=== PATIENT | female | born 1990 | race Two or more races ===

== ENCOUNTER 2018-11-08 14:05 | Emergency (ER) | payer BC ==
--- NOTE | 2018-11-08 14:30 | EDM.PDOC ---
ED HPI GENERAL MEDICAL PROBLEM - General Chief Complaint: Genitourinary Problem Stated Complaint: BLOOD IN URINE Time Seen by Provider: 11/08/18 14:10 - History of Present Illness INITIAL COMMENTS - FREE TEXT/NARRATIVE: HISTORY AND PHYSICAL: History of present illness: The patient is a 27-year-old female who presents with complaints of one week of burning with urination lower back pain and pressure with urination along with subjective fever and chills. She has no flank pain no upper abdominal pain but she has had some nausea without vomiting or diarrhea. She has not documented a fever but says that she has felt feverish. She denies but says that she has irregular periods. The patient has no vaginal complaints She is here with significant other. She is pushing hydration and eating normally. She has not taken anything specifically for the pain but has tried a probiotic. Patient did not state that she has had any hematuria on my evaluation Review of systems: As per history of present illness and below otherwise all systems reviewed and negative. Past medical history: As per history of present illness and as reviewed below otherwise noncontributory. Surgical history: As per history of present illness and as reviewed below otherwise noncontributory. Social history: No reported history of drug or alcohol abuse. Family history: As per history of present illness and as reviewed below otherwise noncontributory. Physical exam: General: Well-developed well-nourished mildly overweight female who is nontoxic and vital signs are noted by me HEENT: Atraumatic, normocephalic, negative for conjunctival pallor or scleral icterus, mucous membranes moist, throat clear, neck supple, nontender, trachea midline. Lungs: Clear to auscultation, breath sounds equal bilaterally, chest nontender. Heart: S1S2, regular rate and rhythm no overt murmurs Abdomen: Soft, nondistended, nontender. Negative for masses or hepatosplenomegaly. Negative for costovertebral tenderness. Pelvis: Stable nontender. Genitourinary: Deferred. Rectal: Deferred. Extremities: Atraumatic, negative for cords or calf pain. Neurovascular unremarkable. Neuro: Awake, alert, oriented. Cranial nerves II through XII unremarkable. Cerebellum unremarkable. Motor and sensory unremarkable throughout. Exam nonfocal. Please note that I did see the patient's urine sample after it was given and prior to going to the laboratory. There is no hematuria grossly seen Diagnostics: UA urine culture UCG Therapeutics: [] Impression: UTI Definitive disposition and diagnosis as appropriate pending reevaluation and review of above. 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 ED EXAM, GENERAL - Physical Exam Exam: See Below (See dictation) Course - Vital Signs Last Recorded V/S: Last Vital Signs Temp 36.6 C 11/08/18 14:13 Pulse 103 H 11/08/18 14:13 Resp 20 11/08/18 14:13 BP 136/79 11/08/18 14:13 Pulse Ox 100 11/08/18 14:13 - Orders/Labs/Meds Orders: Active Orders 24 hr Category Date Time Status CULTURE URINE [RM] Stat Lab 11/08/18 14:12 Received Labs: Laboratory Tests 11/08/18 11/08/18 Range/Units 14:12 14:12 Urine Color YELLOW Urine Appearance SLT CLOUDY Urine pH 6.0 (5.0-8.0) Ur Specific [place] 1.020 (1.001-1.035) Urine Protein TRACE H (NEGATIVE) mg/dL Urine Glucose (UA) NEGATIVE (NEGATIVE) mg/dL Urine Ketones NEGATIVE (NEGATIVE) mg/dL Urine Occult Blood LARGE H (NEGATIVE) Urine Nitrite NEGATIVE (NEGATIVE) Urine Bilirubin NEGATIVE (NEGATIVE) Urine Urobilinogen 0.2 (<2.0) EU/dL Ur Leukocyte Esterase MODERATE H (NEGATIVE) Urine RBC 20-30 (0-2/HPF) Urine WBC 30-40 (0-5/HPF) Ur Epithelial Cells FEW (NONE-FEW) Urine Bacteria FEW (NEGATIVE) Urine HCG, Qual NEGATIVE (NEGATIVE) Departure - Departure Time of Disposition: 14:50 Disposition: Home, Self-Care 01 Condition: Good Clinical Impression: UTI, Urinary tract infectious disease - Discharge Information Referrals: PCP,None [Primary Care Provider] - Forms: ED Department Discharge Additional Instructions: The following information is given to patients seen in the emergency department who are being discharged to home. This information is to outline your options for follow-up care. We provide all patients seen in our emergency department with a follow-up referral. The need for follow-up, as well as the timing and circumstances, are variable depending upon the specifics of your emergency department visit. If you don't have a primary care physician on staff, we will provide you with a referral. We always advise you to contact your personal physician following an emergency department visit to inform them of the circumstance of the visit and for follow-up with them and/or the need for any referrals to a consulting specialist. The emergency department will also refer you to a specialist when appropriate. This referral assures that you have the opportunity for followup care with a specialist. All of these measure are taken in an effort to provide you with optimal care, which includes your followup. Under all circumstances we always encourage you to contact your private physician who remains a resource for coordinating your care. When calling for followup care, please make the office aware that this follow-up is from your recent emergency room visit. If for any reason you are refused follow-up, please contact the [facility] emergency department at and ask to speak to the emergency department charge nurse. [facility]- [facility] Family [address] [address] Push hydration and take all medications as prescribed. Please call and schedule a follow-up appointment in the clinic with one of our providers or with your provider for reevaluation and further care and return to ER as needed and as discussed. Use any [id number] medications you choose for discomfort and pain. - My Orders Last 24 Hours: My Active Orders 11/08/18 14:12 CULTURE URINE [RM] Stat - Assessment/Plan Last 24 Hours: My Active Orders 11/08/18 14:12 CULTURE URINE [RM] Stat
[2018-11-08 15:02] VITALS: BP 105/63; PULSE 95
== END 2018-11-08 14:59 | disposition home or self-care (01) ==
LOC: MW.ED 14:05
DX: N39.0 Urinary tract infection, site not specified (principal)
CPT/HCPCS: 81001; 81025; 87086; 87088; 87186; 99283

== ENCOUNTER 2020-07-06 13:59 | Observation (INO) | payer BC | END 2020-07-06 14:06 | disposition home or self-care (01) | LOC: MW.OB 13:59 | PROVIDERS: ADMIT Obstetrics & Gynecology; ATTEND Obstetrics & Gynecology | DX: Z20.822 Contact with and (suspected) exposure to COVID-19 (principal) | CPT/HCPCS: U0002 ==

== ENCOUNTER 2020-07-07 21:51 | Inpatient (IN) | payer BC ==
[2020-07-07] MEDS ORDERED: Oxytocin/0.9 % Sodium Chloride 30 UNIT/500 ML BAG IV SCH ×2 (22:45→23:00)
[2020-07-07] MEDS ORDERED: Sodium Chloride 0.9% 10 ML Syringe FLUSH PRN (22:45)
[2020-07-07] MEDS ORDERED: Sodium Chloride 0.9% 10 ML SDV IV PRN (22:45)
[2020-07-07] MEDS ORDERED: Sodium Chloride 0.9% 2.5 ML Syringe FLUSH PRN (22:45)
[2020-07-07] MEDS ORDERED: Water For Irrigation,Sterile 1,000 ML Container IRR PRN (22:45)
[2020-07-07] MEDS ORDERED: Tranexamic Acid 1,000 MG in Sodium Chloride 0.9% 100 ML IV PRN (22:45)
[2020-07-07] MEDS ORDERED: Misoprostol 200 MCG Tab PO PRN (22:45)
[2020-07-07] MEDS ORDERED: Carboprost Tromethamine 250 MCG/1 ML Amp IM PRN (22:45)
[2020-07-07] MEDS ORDERED: Methylergonovine 0.2 MG/1 ML Amp IM PRN (22:45)
[2020-07-07] MEDS ORDERED: Lidocaine 1% 50 ML MDV INJECT PRN (22:45)
[2020-07-07] MEDS ORDERED: Misoprostol 25 MCG (1/4 of 100 MCG) Tab PO PRN (22:48)
[2020-07-07] MEDS ORDERED: Terbutaline 1 MG/ML SDV SUBCUT PRN (22:48)
[2020-07-08] MEDS: Butorphanol 1 MG/ML SDV IVPUSH PRN ×2 (02:18→05:17)
[2020-07-08] MEDS: Lactated Ringers 1,000 ML IV SCH ×2 (05:11→08:25)
[2020-07-08] MEDS ORDERED: fentaNYL 100 MCG/2 ML SDV ONE (07:00)
[2020-07-08] MEDS ORDERED: Ropivacaine HCl/PF 0 ML ONE (07:00)
[2020-07-08] MEDS ORDERED: Bisacodyl 10 MG Supp RECTAL PRN (07:43)
[2020-07-08] MEDS ORDERED: oxyCODONE 5 MG Tab PO PRN (07:43)
[2020-07-08] MEDS ORDERED: Ibuprofen 400 MG Tab PO PRN (07:43)
[2020-07-08] MEDS ORDERED: Acetaminophen 500 MG Tab PO PRN ×2 (07:43)
[2020-07-08] MEDS ORDERED: Lanolin 100% Cream 7 GM Tube TOP PRN (07:43)
[2020-07-08] MEDS ORDERED: Witch Hazel Medicated Pads 40/Jar TOP PRN (07:43)
[2020-07-08] MEDS ORDERED: Benzocaine/Menthol 20%-0.5% Spray 78 GM Cannister TOP PRN (07:43)
--- NOTE | 2020-07-08 07:52 | PCM.OPNOTE ---
- General Post-Op/Procedure Note Date of Surgery/Procedure: 07/08/20 Operative Procedure(s): /2nd MLL repaired Findings: Viable male APGARs 8, 9 weight 3960 gm. Spontaneous delivery intact placenta with 3V cord Pre Op Diagnosis: 39/4 week IUP. Elective IOL Post-Op Diagnosis: Same. 3) meconium stained amniotic fluid Anesthesia Technique: Local Primary Surgeon: Ronda Francisco EBL in mLs: 300 Complications: none known Condition: Good Free Text/Narrative:: Dictation [id number]
[2020-07-08] MEDS: Ibuprofen 800 MG Tab PO PRN ×3 (08:27→22:53)
--- NOTE | 2020-07-08 13:58 | OR ---
SURGEON: Ronda Francisco M.D. DATE OF PROCEDURE: 07/08/2020 PREOPERATIVE DIAGNOSES: 1. A 39 and 4 week intrauterine . 2. Elective induction of labor. POSTOPERATIVE DIAGNOSES: 1. A 39 and 4 week intrauterine . 2. Elective induction of labor. 3. Meconium-stained amniotic fluid. PROCEDURE: Spontaneous vaginal delivery, second-degree midline laceration. ANESTHESIA: Local. ESTIMATED BLOOD LOSS: 300 mL. COMPLICATIONS: None known. FINDINGS: Viable male, score 8 at 1 minute, 9 at 5 minutes, weight of 3960 g. Spontaneous delivery, intact placenta, 3-vessel cord. Meconium-stained amniotic fluid noted. Nuchal cord x2 loose, reduced manually. DISPOSITION: The patient to remain in [facility] infant nursery, stable. PROCEDURE DETAILS: Yolanda is a 29-year-old G2, P1 at 39 and 3 weeks gestational age, presented on the evening of 07/07/2020 for scheduled induction of labor. She was admitted. Routine labs were drawn. IV hydration was initiated. She underwent Cytotec dosing as she was 2, 60, -3. She responded nicely to this. By the following morning, approximately 5 a.m., she was approximately 3 cm, 60% effaced, -2 station. At this point, she had regular contractions every 2 minutes, was becoming increasingly uncomfortable, and by approximately 6 a.m., she was found to be 5 to 6 cm. The patient was seen and evaluated. She did initially request an epidural; however, within the next 30 to 45 minutes, she progressed to 9 to 10 cm, feeling the urge to push and opted not to undergo the epidural. She had spontaneous rupture of membranes shortly before 7 a.m. The patient quickly progressed to complete, feeling the urge to push. She was placed in modified dorsal lithotomy position. Was prepped and draped in the usual aseptic manner. With the next 2 contractions, was able to push, delivered the infant's head atraumatically spontaneously, followed by anterior shoulder, posterior shoulder, and remainder of the body without difficulty. There was a loose nuchal cord x2 noted. This was reduced manually. The infant's oropharynx and nares were bulb suctioned. Infant was handed off to his mother, attending nursery staff at her side. Infant had good tone, was crying. After delay, cord was clamped x2 and cut. Cord arterial, cord venous, cord blood sampling was obtained. Light pressure was applied while the placenta was delivered spontaneously intact. Vigorous fundal uterine massage was then applied. Pitocin was delivered in 500 mL of IV fluid. There is a second-degree midline laceration noted. This was repaired using 3-0 Vicryl after prepping the region with approximately 15 mL 1% local lidocaine. Had placed some lidocaine along the perineum prior to delivery. The patient tolerated the repair well. Sponge, instrument, and needle count was correct. Uterus remained firm. Hemostasis evident. The patient remained in [facility] to nursery. KJ / GONZALES /[id number] MTDArgelia
[2020-07-08] MEDS: Docusate Sodium 100 MG Cap PO PRN (20:57)
--- NOTE | 2020-07-09 05:32 | PCM.PNPP ---
- General Info Date of Service: 07/09/20 Functional Status: Reports: Pain Controlled - Review of Systems General: Reports: No Symptoms HEENT: Reports: No Symptoms Pulmonary: Reports: No Symptoms Cardiovascular: Reports: No Symptoms Gastrointestinal: Reports: No Symptoms Genitourinary: Reports: No Symptoms Musculoskeletal: Reports: No Symptoms Skin: Reports: No Symptoms Neurological: Reports: No Symptoms Psychiatric: Reports: No Symptoms - General Info Date of Service: 07/09/20 - Patient Data Vital Signs - Most Recent: Last Vital Signs Temp 36.6 C 07/08/20 20:00 Pulse 73 07/08/20 20:00 Resp 16 07/08/20 20:00 BP 127/77 07/08/20 20:00 Pulse Ox 98 07/08/20 20:00 Weight - Most Recent: 107.955 kg Lab Results - Last 24 Hours: Laboratory Results - last 24 hr 07/08/20 Range/Units 07:14 Cord ABG pH 7.210 (7.18-7.38) Cord ABG Base Excess -9 (-10--2) Cord VBG pH 7.340 (7.25-7.45) Cord VBG Base Excess -4 (-10--2) Med Orders - Current: Current Medications Acetaminophen (Acetaminophen 500 Mg Tab) 500 mg PO Q4H PRN PRN Reason: Pain Acetaminophen (Acetaminophen 500 Mg Tab) 1,000 mg PO Q4H PRN PRN Reason: Pain Last Admin: 07/09/20 05:17 Dose: 1,000 mg Documented by: Benzocaine/Menthol (Benzocaine/Menthol 20%-0.5% [place] 78 Gm Cannister) 78 gm TOP ASDIRECTED PRN PRN Reason: Perineal Comfort Measure Last Admin: 07/08/20 08:26 Dose: 78 gm Documented by: Bisacodyl (Bisacodyl 10 Mg Supp) 10 mg RECTAL ONETIME PRN PRN Reason: Constipation Carboprost Tromethamine (Carboprost Tromethamine 250 Mcg/1 Ml Amp) 250 mcg IM ASDIRECTED PRN PRN Reason: Post Hemorrhage Docusate Sodium (Docusate Sodium 100 Mg Cap) 100 mg PO BID PRN PRN Reason: Constipation Last Admin: 07/08/20 20:57 Dose: 100 mg Documented by: Emollient Ointment (Lanolin 100% Cream 7 Gm Tube) 0 gm TOP ASDIRECTED PRN PRN Reason: Sore Nipples Last Admin: 07/08/20 08:27 Dose: 7 gm Documented by: Oxytocin/Sodium Chloride (Oxytocin 30 Unit/500 Ml-Ns) 30 unit in 500 mls @ 999 mls/hr IV TITRATE [facility] Last Admin: 07/08/20 07:16 Dose: 999 mls/hr Documented by: Tranexamic Acid 1,000 mg/ (Sodium Chloride) 110 mls @ 660 mls/hr IV ONETIME PRN PRN Reason: Bleeding Lactated Ringer's (Ringers, Lactated) 1,000 mls @ 150 mls/hr IV ASDIRECTED [facility] Last Admin: 07/08/20 08:25 Dose: 150 mls/hr Documented by: Ibuprofen (Ibuprofen 400 Mg Tab) 400 mg PO Q4H PRN PRN Reason: Pain Ibuprofen (Ibuprofen 800 Mg Tab) 800 mg PO Q6H PRN PRN Reason: Pain Last Admin: 07/08/20 22:53 Dose: 800 mg Documented by: Lidocaine HCl (Lidocaine 1% 50 Ml Mdv) 50 ml INJECT ONETIME PRN PRN Reason: Laceration repair Last Admin: 07/08/20 08:26 Dose: 50 ml Documented by: Methylergonovine Maleate (Methylergonovine 0.2 Mg/1 Ml Amp) 0.2 mg IM ASDIRECTED PRN PRN Reason: Post Hemorrhage Oxycodone HCl (Oxycodone 5 Mg Tab) 5 mg PO Q2H PRN PRN Reason: Pain Sodium Chloride (Sodium Chloride 0.9% 10 Ml Syringe) 10 ml FLUSH ASDIRECTED PRN PRN Reason: Keep Vein Open Sodium Chloride (Sodium Chloride 0.9% 2.5 Ml Syringe) 2.5 ml FLUSH ASDIRECTED PRN PRN Reason: Keep Vein Open Sterile Water (Water For Irrigation,Sterile 1,000 Ml Container) 1,000 ml IRR ASDIRECTED PRN PRN Reason: delivery Witch Aysha (Witch Aysha Medicated Pads 40/Jar) 1 pad TOP ASDIRECTED PRN PRN Reason: comfort care Last Admin: 07/08/20 08:26 Dose: 1 pad Documented by: Discontinued Medications Butorphanol Tartrate (Butorphanol 1 Mg/Ml Sdv) 1 mg IVPUSH Q1H PRN PRN Reason: Pain Last Admin: 07/08/20 05:17 Dose: 1 mg Documented by: Fentanyl (Fentanyl 100 Mcg/2 Ml Sdv) Confirm Administered Dose 100 mcg .ROUTE .STK-MED ONE Stop: 07/08/20 07:01 Last Admin: 07/09/20 02:55 Dose: Not Given Documented by: Oxytocin/Sodium Chloride (Oxytocin 30 Unit/500 Ml-Ns) 30 unit in 500 mls @ 2 mls/hr IV TITRATE DONNY; Protocol Ropivacaine (Naropin 0.2%) Confirm Administered Dose 100 mls @ as directed .ROUTE .STK-MED ONE Stop: 07/08/20 07:01 Last Admin: 07/09/20 02:55 Dose: Not Given Documented by: Misoprostol (Misoprostol 200 Mcg Tab) 200 mcg PO ONETIME PRN PRN Reason: Post Hemorrhage Misoprostol (Misoprostol 25 Mcg (1/4 Of 100 Mcg) Tab) 25 mcg PO ONETIME PRN PRN Reason: Cervical Ripening Last Admin: 07/07/20 23:08 Dose: 25 mcg Documented by: Sodium Chloride (Sodium Chloride 0.9% 10 Ml Sdv) 10 ml IV ASDIRECTED PRN PRN Reason: IV Use Terbutaline Sulfate (Terbutaline 1 Mg/Ml Sdv) 0.25 mg SUBCUT ASDIRECTED PRN PRN Reason: Tacysystole - Infant Interaction Support Person: - Recovery Exam Fundal Tone: Firm Fundal Level: 1 Fingerbreadths Below Umbilicus Fundal Placement: Midline Lochia Amount: Scant, Small Lochia Color: Rubra/Red Perineum Description: Other (see below) Other Perinuem Description: 2nd degree laceration Episiotomy/Laceration: Approximated Bladder Status: Voiding Urinary Elimination: Voided - Exam General: Alert, Oriented Cardiovascular: Regular Rate, Regular Rhythm GI/Abdominal Exam: Normal Bowel Sounds, Soft Extremities: Pedal Edema (trace). No: Pietro's Sign Skin: Warm, Dry, Intact Neurological: No New Focal Deficit Psy/Mental Status: Alert, Normal Affect, Normal Mood - Problem List & Annotations (1) Vaginal delivery SNOMED Code(s): 901488215 Code(s): O80 - ENCOUNTER FOR FULL-TERM UNCOMPLICATED DELIVERY Status: Acute Current Visit: No - Problem List Review Problem List Initiated/Reviewed/Updated: Yes - My Orders Last 24 Hours: My Active Orders 07/08/20 Breakfast Regular Diet [DIET] 07/08/20 07:43 Notify Provider Vital Signs [RC] ASDIRECTED Acetaminophen [Tylenol Extra Strength] 1,000 mg PO Q4H PRN Acetaminophen [Tylenol Extra Strength] 500 mg PO Q4H PRN Benzocaine/Menthol [Dermoplast Pain Relief 20%-0.5% [place]] 78 gm TOP ASDIRECTED PRN Docusate Sodium [Colace] 100 mg PO BID PRN Ibuprofen [Motrin] 400 mg PO Q4H PRN Ibuprofen [Motrin] 800 mg PO Q6H PRN Lanolin [Lansinoh HPA] See Dose Instructions TOP ASDIRECTED PRN bisacodyL [Dulcolax] 10 mg RECTAL ONETIME PRN oxyCODONE 5 mg PO Q2H PRN witch Aysha [Tucks] 1 pad TOP ASDIRECTED PRN 07/08/20 07:44 Patient Status [ADT] Routine May Shower [RC] ASDIRECTED Up ad Meme [RC] ASDIRECTED Vital Signs [RC] PER UNIT ROUTINE Assess Lochia [WOMSER] Per Unit Routine Assess Uterine Involution [WOMSER] Per Unit Routine Ice Therapy [OM.PC] Per Unit Routine Perineal Care [OM.PC] Per Unit Routine Peripheral IV Discontinue [OM.PC] Routine 07/09/20 05:11 HEMOGLOBIN/HEMATOCRIT,HH [HEME] Routine 07/09/20 05:30 Ready for Discharge [RC] PER UNIT ROUTINE - Assessment Assessment:: PPD 1 status post - Plan Plan:: Doing well overall-- going well. Would like to go home today. Discharge instructions reviewed. Follow up at [facility] 4 weeks. Discharge to home today.
[2020-07-09] MEDS: Docusate Sodium 100 MG Cap PO PRN (07:11)
[2020-07-09] MEDS: Ibuprofen 800 MG Tab PO PRN (07:11)
[2020-07-09 09:18] VITALS: BP 123/70; PULSE 77
== END 2020-07-09 15:40 | disposition home or self-care (01) | DRG 560 ==
LOC: MW.OB 21:51 → OBSVTOIN 07-08 07:16 → MW.OB 07-08 11:37
PROVIDERS: ADMIT Obstetrics & Gynecology; ATTEND Obstetrics & Gynecology
PROC: 10E0XZZ Delivery of Products of Conception, External Approach (ICD-10-PCS; principal; 2020-07-08)
PROC: 3E0P7VZ Introduction of Hormone into Female Reproductive, Via Natural or Artificial Opening (ICD-10-PCS; 2020-07-08)
PROC: 0KQM0ZZ Repair Perineum Muscle, Open Approach (ICD-10-PCS; 2020-07-08)
DX: O77.0 Labor and delivery complicated by meconium in amniotic fluid (principal); Z3A.39 39 weeks gestation of pregnancy; Z37.0 Single live birth; O69.81X0 Labor and delivery complicated by cord around neck, without compression, not applicable or unspecified; O70.1 Second degree perineal laceration during delivery
CPT/HCPCS: 36415; 59025; 59409; 82803; 85014; 85018; 85027; 86592; 86850; 86900; 86901; A9270-GY; J0595; J2001; J2590; J7120

== ENCOUNTER 2021-02-24 08:05 | Emergency (ER) | payer BC ==
[2021-02-24] MEDS ORDERED: Ketorolac 15 MG/ML SDV IM ONE (08:44)
[2021-02-24 09:08] LABS: CORONAVIRUS COVID-19 NAA POSITIVE (NEGATIVE); INFLUENZA A NAA NEGATIVE (NEGATIVE); INFLUENZA B NAA NEGATIVE (NEGATIVE)
[2021-02-24 09:42] VITALS: BP 102/58; PULSE 98
--- NOTE | 2021-02-24 09:44 | EDM.PDOC ---
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 The patient states that she is experiencing a bifrontal headache which she describes as mild and throbbing rated 4-5 out of 10 not associated with any blurry vision, double vision or loss of vision. She denies any trouble walking speaking or swallowing. She states that in addition to this she is experiencing body aches, runny nose and a nonproductive cough. She denies any chest pain or shortness of breath. She states that she has not yet tried any pain medication other than Tylenol and flu pills which has not helped her body aches or her headache. There are no exacerbating factors. She states that she is not vaccinated and her just tested positive for Covid. She states that her symptoms have been going on for approximately 2 days now. She denies any other symptoms such as recent travel, recent surgery or prior history of DVT or PE. REVIEW OF SYSTEMS: Constitutional: Denies fever, chills. Eyes: Denies eye pain Ears, Nose, Mouth, & Throat: Positive for runny nose denies earache Cardiovascular: Denies chest pain Respiratory: Denies shortness of breath Gastrointestinal: Denies Nausea, vomiting, diarrhea, hematochezia. Genitourinary: Denies hematuria Skin:Denies a rash MSK: Positive for body aches Neurological: Positive for headache. Denies blurred vision, double vision, loss of vision, numbness, tingling, weakness psychiatric: Denies depression PAST MEDICAL HISTORY: As per history of present illness and as reviewed below otherwise noncontributory. SURGICAL HISTORY: As per history of present illness and as reviewed below otherwise noncontributory. SOCIAL HISTORY: As per history of present illness and as reviewed below otherwise noncontributory. FAMILY HISTORY: As per history of present illness and as reviewed below otherwise noncontributory. EXAMINATION OF ORGAN SYSTEMS/BODY AREAS: Constitutional: Blood pressure is 124/54, heart rate 109, respiratory rate 16 with an oxygen saturation 95% on room air. Temperature 36.0 General: Well-appearing woman who is in no acute distress Psychiatric: Appropriate mood and affect. Eyes: No scleral icterus or conjunctival erythema ENMT: Moist mucous membranes. No pharyngeal erythema Cardiovascular: Regular, rate, and rhythm. No gallops, murmurs, or rubs. Bilateral upper extremity pulses symmetric and intact. No peripheral edema. No JVD. Respiratory: Lungs clear to auscultation bilaterally. No wheezes, rales, or rhonchi. Gastrointestinal: Soft, non-tender, non-distended. Normoactive bowel sounds Genitourinary: No suprapubic tenderness Musculoskeletal: Normal range of motion. Skin: No lesions or abrasions. Neurological: Alert, GCS 15 MEDICAL DECISION MAKING AND COURSE IN THE ED WITH INTERPRETATION/REVIEW OF DIAGNOSTIC STUDIES: This is a 30-year-old woman without any significant past medical history who comes to the emergency department with Covid-like symptoms with a known exposure and her . At this time the patient's oxygenation is appropriate. Will obtain a Covid, influenza and RSV swab. I do not believe any further work-up is indicated. DDx: Covid, viral URI Laboratory: Covid is positive. Influenza is negative. After labs and imaging I did discuss Covid precautions. I discussed supportive treatment at treatment at home. I discussed return precautions. She does need Regeneron infusion criteria. Therefore I did fax the patient's information over as the patient was interested. She was amenable to discharge and had no further questions DISPOSITION: The patient was discharged home in stable condition. The patient will follow up with PCP after isolation. CONDITION: Fair PROCEDURES: None FINAL IMPRESSION(S)/DIAGNOSES: 1. Acute COVID-19 Vineet Arreguin M.D. Generalized Pain Score (Numeric/FACES): 8 - Related Data Allergies Allergy/AdvReac Type Severity Reaction Status Date / Time No Known Allergies Allergy Verified 02/24/21 08:30 Home Meds: Home Meds . [No Known Home Meds] 02/24/21 [History] Past Medical History - Past Health History Medical/Surgical History: Denies Medical/Surgical History HEENT History: Reports: None Cardiovascular History: Reports: None Respiratory History: Reports: None Gastrointestinal History: Reports: None Genitourinary History: Reports: None CLERICAL GRADER History: Reports: Musculoskeletal History: Reports: None Neurological History: Reports: None Psychiatric History: Reports: None Endocrine/Metabolic History: Reports: None Hematologic History: Reports: None Immunologic History: Reports: None Oncologic (Cancer) History: Reports: None Dermatologic History: Reports: None - Infectious Disease History Infectious Disease History: Reports: Chicken Pox - Past Surgical History Head Surgeries/Procedures: Reports: None HEENT Surgical History: Reports: None Cardiovascular Surgical History: Reports: None Respiratory Surgical History: Reports: None GI Surgical History: Reports: None Female Surgical History: Reports: None Endocrine Surgical History: Reports: None Neurological Surgical History: Reports: None Musculoskeletal Surgical History: Reports: None Oncologic Surgical History: Reports: None Dermatological Surgical History: Reports: Other (See Below) Social & Family History - Family History Family Medical History: No Pertinent Family History HEENT: Reports: None Cardiac: Reports: Hypertension Respiratory: Reports: Asthma GI: Reports: None : Reports: Other (See Below) Other Family History: Kidney disease Musculoskeletal: Reports: None Neurological: Reports: None Psychiatric: Reports: None Endocrine/Metabolic: Reports: Diabetes, Type I Hematologic: Reports: None Immunologic: Reports: None Dermatologic: Reports: None Oncologic: Reports: Breast - Tobacco Use Tobacco Use Status *Q: Never Tobacco User - Caffeine Use Caffeine Use: Reports: None - Recreational Drug Use Recreational Drug Use: No ED ROS GENERAL - Review of Systems Review Of Systems: See Below ED EXAM, GENERAL - Physical Exam Exam: See Below Course - Vital Signs Last Recorded V/S: Last Vital Signs Temp 37.9 C 02/24/21 08:38 Pulse 98 02/24/21 09:42 Resp 16 02/24/21 09:42 BP 102/58 L 02/24/21 09:42 Pulse Ox 98 02/24/21 09:42 - Orders/Labs/Meds Labs: Laboratory Tests 02/24/21 Range/Units 08:27 Influenza Type A RNA NEGATIVE (NEGATIVE) Influenza Type B RNA NEGATIVE (NEGATIVE) SARS-CoV-2 RNA (ANABELLA) POSITIVE H (NEGATIVE) Meds: Medications Discontinued Medications Generic Name Dose Route Start Last Admin Trade Name Freq PRN Reason Stop Dose Admin Ketorolac Tromethamine 15 mg 02/24/21 08:44 02/24/21 08:48 Ketorolac 15 Mg/Ml Sdv IM 02/24/21 08:45 15 mg ONETIME ONE Administration Departure - Departure Time of Disposition: 09:43 Disposition: Home, Self-Care 01 Condition: Fair Clinical Impression: COVID-19 - Discharge Information *PRESCRIPTION DRUG MONITORING PROGRAM REVIEWED*: No *COPY OF PRESCRIPTION DRUG MONITORING REPORT IN PATIENT MICKY: No Instructions: 10 Things You Can Do to Manage Your COVID-19 Symptoms at Home - [facility] (10/20/2020) Referrals: PCP,None [Primary Care Provider] - Forms: ED Department Discharge Additional Instructions: Debe rosi acetaminofn 500-1000 mg cada 6 horas segn sea necesario para la fiebre y los yue musculares. Rula muchos lquidos y descanse lo suficiente domonique los prximos gee. Le recomendamos que obtenga un oxmetro de pulso en la farmacia para controlar molina nivel de oxgeno. Si molina nivel de oxgeno por debajo del 91%, debe regresar al servicio de urgencias para molina evaluacin. Debe regresar a la tj de emergencias antes si comienza a tener sntomas de dificultad para respirar o cualquier otro sntoma nuevo o preocupante. 1. Molina prueba de COVID-19 es positiva. Eso significa que tiene el coronavirus y se le considera contagioso. Clraa signos vitales y la saturacin de oxgeno estn lo suficientemente felicia ariel para poder controlar clara sntomas en casa. Contine monitoreando si tiene problemas para respirar, nueva confusin o incapacidad para despertarse, labios o randell azulados o cualquiera de los otros sntomas que discutimos; si esto ocurre, regrese a la tj de emergencias. 2. Pngase en cuarentena domonique los prximos 10 gee. Informe a todas las personas con las que rodríguez estado en contacto desde que comenz a tener sntomas de que rodríguez dado positivo en la prueba; deben ser informados y rosi las medidas adecuadas segn sea necesario. 3. Puede alternar Tylenol e ibuprofeno segn sea necesario para controlar el dolor y la fiebre. 4. El departamento de satinder del estado lo llamar y se pondr en contacto con usted. La lnea directa de [place] COVID 19, nmero de telfono , est abierta de lunes a viernes de 7 a. M. A 7 p. M. Polly un seguimiento con molina proveedor de atencin primaria para junaid reevaluacin y junaid nueva prueba despus de la cuarentena de 10 gee y discuta cundo debe ser atendido. [facility] [address] [place] [id number] [facility] [address] [place] [id number] Se informa al paciente de los resultados de molina evaluacin y diagnstico y se responden todas las preguntas. Se les chacha instrucciones de nay y precauciones de devolucin. El paciente est estable para el nay. El paciente afirma que e ntiende y est de acuerdo con el plan y que volver si clara sntomas empeoran o si tiene alguna inquietud nueva. La siguiente informacin se brock a los pacientes atendidos en el departamento de emergencias que estn siendo dados de nay a molina hogar. Esta informacin es para describir clara opciones para la atencin de seguimiento. Proporcionamos a todos los pacientes atendidos en nuestro departamento de emergencias junaid derivacin de seguimiento. La necesidad de seguimiento, as ariel el momento y las circunstancias, varan segn los detalles de molina visita al departamento de emergencias. Si no tiene un mdico de atencin primaria en el personal, le proporcionaremos junaid referencia. Siempre le recomendamos que se ponga en contacto con molina mdico personal despus de junaid visita al servicio de urgencias para informarle de las circunstancias de la visita y para realizar un seguimiento con l y / o la necesidad de cualquier derivacin a un especialista consultor. El departamento de emergencias tambin lo derivar a un especialista cuando sea apropiado. Esta remisin le asegura que tiene la oportunidad de recibir atencin de seguimiento con un especialista. Todas estas medidas se roz en un esfuerzo por brindarle junaid atencin ptima, que incluye molina seguimiento. En todas las circunstancias, siempre lo alentamos a que se comunique con molina mdico privado, quien sigue siendo un recurso para coordinar molina atencin. Cuando llame para recibir atencin de seguimiento, informe al consultorio que keily seguimiento es de molina visita reciente a la tj de emergencias. Si por alguna razn se le niega el seguimiento, comunquese con el Departamento de Emergencias del [facility] al y solicite hablar con la enfermera a cargo del departamento de emergencias. Sepsis Event Note (ED) - Evaluation Sepsis Screening Result: No Definite Risk
== END 2021-02-24 10:10 | disposition home or self-care (01) ==
LOC: MW.ED 08:05
DX: U07.1 COVID-19 (principal)
CPT/HCPCS: 0240U; 96372; 99284; J1885

== ENCOUNTER 2021-10-03 21:13 | Emergency (ER) | payer BC ==
[2021-10-03 22:38] VITALS: BP 101/69; PULSE 74
== END 2021-10-03 22:38 | disposition home or self-care (01) ==
LOC: MW.ED 21:13
DX: U07.1 COVID-19 (principal)
CPT/HCPCS: 81025; 99282; 99284; U0002

== ENCOUNTER 2022-09-27 00:27 | Inpatient (IN) | payer BC ==
[2022-09-27] MEDS ORDERED: Sodium Chloride 0.9% 10 ML Syringe FLUSH PRN (00:43)
[2022-09-27] MEDS ORDERED: Carboprost Tromethamine 250 MCG/1 mL Vial IM PRN (00:43)
[2022-09-27] MEDS ORDERED: Misoprostol 25 MCG (1/4 of 100 MCG) Tab VAG PRN ×2 (00:43)
[2022-09-27] MEDS ORDERED: Lidocaine 1% 50 ML MDV INJECT PRN (00:43)
[2022-09-27] MEDS ORDERED: Terbutaline 1 MG/ML SDV SUBCUT PRN (00:43)
[2022-09-27] MEDS ORDERED: Butorphanol 1 MG/ML SDV IVPUSH PRN (00:43)
[2022-09-27] MEDS ORDERED: Methylergonovine 0.2 MG/1 ML Amp IM PRN (00:43)
[2022-09-27] MEDS ORDERED: Misoprostol 200 MCG Tab PO PRN (00:43)
[2022-09-27] MEDS ORDERED: Sodium Chloride 0.9% 2.5 ML Syringe FLUSH PRN (00:43)
[2022-09-27] MEDS ORDERED: Sodium Chloride 0.9% 20 ML SDV IV PRN (00:43)
[2022-09-27] MEDS ORDERED: Water For Irrigation,Sterile 1,000 ML Container IRR PRN (00:43)
[2022-09-27] MEDS ORDERED: Tranexamic Acid 1,000 MG in Sodium Chloride 0.9% 100 ML IV PRN (00:43)
[2022-09-27] MEDS ORDERED: Oxytocin/0.9 % Sodium Chloride 30 UNIT/500 ML BAG IV SCH ×2 (00:45)
[2022-09-27] MEDS: Lactated Ringers 1,000 ML IV SCH ×3 (01:21→13:34)
[2022-09-27 01:30] LABS: HEMATOCRIT 38.4 % (36.0-46.0); HEMOGLOBIN 13.1 g/dL (12.0-16.0); MEAN CORPUSCULAR HEMOGLOBIN 29.8 pg (27.0-32.0); MEAN CORPUSCULAR HGB CONC 34.1 g/dL (31.0-37.0); MEAN CORPUSCULAR VOLUME 87.5 fL (80.0-98.0); MEAN PLATELET VOLUME 11.3 fL (7.40-12.00); RED BLOOD CELL COUNT 4.39 M/uL (4.30-5.90); WHITE BLOOD CELL COUNT,WBC 11.04 K/uL (4.0-11.0)
[2022-09-27] MEDS ORDERED: Bupivacaine 0.5% 10 ML SDV ONE (13:19)
[2022-09-27] MEDS ORDERED: Ropivacaine/PF 400 MG/200 ML PCA ONE (13:19)
[2022-09-27] MEDS ORDERED: Phenylephrine HCl 0.5 MG/5 ML AMP IVPUSH PRN (13:58)
[2022-09-27] MEDS ORDERED: ePHEDrine 50 MG/ML SDV IVPUSH PRN ×2 (13:58)
[2022-09-27] MEDS ORDERED: Ropivacaine HCl/PF 400 MG in Premix Bag 1 BAG EPIDUR SCH (14:00)
[2022-09-27] MEDS ORDERED: Ondansetron 4 MG/2 ML SDV ONE (17:58)
[2022-09-27] MEDS ORDERED: Ondansetron 4 MG/2 ML SDV IVPUSH PRN (18:10)
[2022-09-27] MEDS ORDERED: Benzocaine/Menthol 20%-0.5% Spray 78 GM Cannister TOP PRN (18:40)
[2022-09-27] MEDS ORDERED: Bisacodyl 10 MG Supp RECTAL PRN (18:40)
[2022-09-27] MEDS ORDERED: Ibuprofen 400 MG Tab PO PRN (18:40)
[2022-09-27] MEDS ORDERED: Lanolin 100% Cream 7 GM Tube TOP PRN (18:40)
[2022-09-27] MEDS ORDERED: Witch Hazel Medicated Pads 40/Jar TOP PRN (18:40)
[2022-09-27] MEDS ORDERED: oxyCODONE 5 MG Tab PO PRN (18:40)
[2022-09-27] MEDS ORDERED: Acetaminophen 500 MG Tab PO PRN (18:40)
[2022-09-27 19:10] LABS: PH,UMBILICAL ARTERIAL 7.21 (7.18-7.38)
[2022-09-27 19:11] LABS: PH,UMBILICAL VENOUS 7.282 (7.25-7.45)
[2022-09-28] MEDS: Ibuprofen 800 MG Tab PO PRN ×3 (00:09→20:27)
[2022-09-28] MEDS: Acetaminophen 500 MG Tab PO PRN ×4 (00:10→20:28)
[2022-09-28 06:23] LABS: HEMATOCRIT 39.5 % (36.0-46.0)
[2022-09-28] MEDS: Docusate Sodium 100 MG Cap PO PRN ×2 (08:12→20:29)
[2022-09-29 14:47] VITALS: BP 132/83; PULSE 83
== END 2022-09-29 17:04 | disposition home or self-care (01) | DRG 560 ==
LOC: MW.OBCHECK 00:27 → MW.OB 00:30 → MW.OBCHECK 00:44 → OBSVTOIN 18:23 → MW.OB 18:23
PROVIDERS: ADMIT Obstetrics & Gynecology; ATTEND Obstetrics & Gynecology
PROC: 10E0XZZ Delivery of Products of Conception, External Approach (ICD-10-PCS; principal; 2022-09-29)
PROC: 3E0R3BZ Introduction of Anesthetic Agent into Spinal Canal, Percutaneous Approach (ICD-10-PCS; 2022-09-29)
PROC: 00HU33Z Insertion of Infusion Device into Spinal Canal, Percutaneous Approach (ICD-10-PCS; 2022-09-29)
PROC: 3E0P7VZ Introduction of Hormone into Female Reproductive, Via Natural or Artificial Opening (ICD-10-PCS; 2022-09-29)
DX: O36.63X0 Maternal care for excessive fetal growth, third trimester, not applicable or unspecified (principal); O99.02 Anemia complicating childbirth; O76 Abnormality in fetal heart rate and rhythm complicating labor and delivery; O77.0 Labor and delivery complicated by meconium in amniotic fluid; O99.214 Obesity complicating childbirth; D64.9 Anemia, unspecified; Z3A.39 39 weeks gestation of pregnancy; Z37.0 Single live birth
CPT/HCPCS: 36415; 51702; 59025; 59409; 82803; 85014; 85018; 85027; 86592; 86850; 86900; 86901; A9270-GY; J2405; J2590; J2795; J3490; J7120

== ENCOUNTER 2024-08-01 13:38 | Emergency (ER) | payer BC ==
[2024-08-01 17:50] LABS: BILIRUBIN,URINE NEGATIVE (NEGATIVE); COLOR,URINE YELLOW; GLUCOSE,URINE NEGATIVE (NEGATIVE); KETONES,URINE NEGATIVE (NEGATIVE); LEUKOCYTE ESTERASE,URINE NEGATIVE (NEGATIVE); NITRITE,URINE NEGATIVE (NEGATIVE); OCCULT BLOOD,URINE NEGATIVE (NEGATIVE); PROTEIN,URINE NEGATIVE (NEGATIVE); UROBILINOGEN,URINE 0.2 EU/dL (<2.0)
[2024-08-01 17:53] LABS: AMPHETAMINES SCREEN, URINE NEGATIVE (CUTOFF=500); BARBITURATE SCREEN,URINE NEGATIVE (CUTOFF=200); BENZODIAZEPINES SCREEN,URINE NEGATIVE (CUTOFF=150); BUPRENORPHINE SCREEN,URINE NEGATIVE (CUTOFF=10); METHADONE SCREEN, URINE NEGATIVE (CUTOFF=200); METHAMPHETAMINES SCREEN, URINE NEGATIVE (CUTOFF=500); OXYCODONE SCREEN,URINE NEGATIVE (CUT0FF=100); PCP SCREEN,URINE NEGATIVE (CUTOFF=25); THC SCREEN,URINE 20 NG/ML NEGATIVE (CUTOFF=50)
[2024-08-01 17:58] LABS: APPEARANCE,URINE HAZY
[2024-08-01 18:26] VITALS: BP 100/62; PULSE 70
== END 2024-08-01 18:26 | disposition home or self-care (01) ==
LOC: MW.ED 13:38
DX: A08.4 Viral intestinal infection, unspecified (principal); Z79.899 Other long term (current) drug therapy
CPT/HCPCS: 80305; 81003; 81025; 87428-QW; 87651; 99283; 99284